=== PATIENT | female | born 1945 | race Caucasian/White ===

== ENCOUNTER 2021-01-25 09:47 | Outpatient (REF) | payer SELFPAY ==
[2021-01-25 11:52] LABS: Alanine Aminotransferase 8 U/L (0-31); Anion Gap 13 (12-20); Aspartate Amino Transferase 15 U/L (5-31); Blood Urea Nitrogen 10 mg/dL (9-16); Carbon Dioxide 31 mmol/L (22-29); Chloride 101 mmol/L (96-108); Cholesterol 173 mg/dL; Estimated Glomerular Filt Rate > 60; Glucose Fasting 140 mg/dL (60-99); HDL Cholesterol 49 mg/dL; LDL Cholesterol Calculated 84 mg/dl; Potassium 4.6 mmol/L (3.3-5.1); Sodium 140 mmol/L (135-145); Triglycerides 201 mg/dL
[2021-01-25 11:59] LABS: Estimated Average Glucose 140 mg/dL; Hemoglobin A1c % 6.5 %
[2021-01-25 12:18] LABS: Vitamin D 25-OH Total 33.7 ng/mL (>30)
== END 2021-01-25 09:48 | disposition home or self-care (01) ==
LOC: HO.HMGCLDS 09:47
PROVIDERS: PCP Internal Medicine; Visit Provider Internal Medicine
DX: E11.9 Type 2 diabetes mellitus without complications (principal); E78.5 Hyperlipidemia, unspecified; I10 Essential (primary) hypertension
CPT/HCPCS: 36415; 80048; 80061; 82306; 83036; 84450; 84460

== ENCOUNTER 2022-02-12 08:14 | Outpatient (REF) | payer SELFPAY ==
[2022-02-12 11:59] LABS: Estimated Average Glucose 143 mg/dL; Hemoglobin A1c % 6.6 %
[2022-02-12 12:15] LABS: Alanine Aminotransferase 8 U/L (0-31); Anion Gap 13 (12-20); Aspartate Amino Transferase 13 U/L (5-31); Blood Urea Nitrogen 12 mg/dL (9-16); Calcium 10.2 mg/dL (8.4-10.2); Carbon Dioxide 29 mmol/L (22-29); Chloride 103 mmol/L (96-108); Cholesterol 158 mg/dL; Estimated Glomerular Filt Rate > 60; Glucose Fasting 119 mg/dL (60-99); HDL Cholesterol 46 mg/dL; LDL Cholesterol Calculated 85 mg/dl; Potassium 4.4 mmol/L (3.3-5.1); Sodium 141 mmol/L (135-145); Triglycerides 139 mg/dL; Vitamin D 25-OH Total 16.9 ng/mL (>30)
[2022-02-12 12:16] LABS: Creatinine Urine 123.88 mg/dL; Microalbum/Creatinine Ratio Ur 115.4 ug/mg cr
== END 2022-02-12 08:15 | disposition home or self-care (01) ==
LOC: HO.HMGCLDS 08:14
PROVIDERS: PCP Internal Medicine; Visit Provider Internal Medicine
DX: M81.0 Age-related osteoporosis without current pathological fracture (principal); E11.9 Type 2 diabetes mellitus without complications; E78.5 Hyperlipidemia, unspecified; I10 Essential (primary) hypertension; Z78.0 Asymptomatic menopausal state
CPT/HCPCS: 36415; 80048; 80061; 82043; 82306; 83036; 84450; 84460

== ENCOUNTER 2022-05-16 09:50 | Outpatient (REF) | payer SELFPAY ==
[2022-05-16 11:11] LABS: MANUAL DIFF FLAG NO
[2022-05-16 11:21] LABS: Basophils Absolute Auto 0.1 X10*3/uL (0.0-0.2); Basophils Percent Auto 0.7 % (0-2); Eosinophils Absolute Auto 0.2 X10*3/uL (0.0-0.4); Eosinophils Percent Auto 2.2 % (0-4); Hematocrit 34.2 % (37.0-47.0); Hemoglobin 10.3 g/dl (12.0-16.0); Imm Gran Abs Auto 0.02 X10*3/uL (0.00-0.03); Imm Gran Pct Auto 0.3 % (0.0-0.4); Lymphocytes Absolute Auto 2.4 X10*3/uL (1.2-4.9); Lymphocytes Percent Auto 33.1 % (20-40); Mean Corpuscular HGB Conc 30.1 g/dl (31.0-35.0); Mean Corpuscular Hemoglobin 24.9 pg (27.0-33.0); Mean Corpuscular Volume 82.8 fL (80.0-98.0); Mean Platelet Volume 11.3 fL (9.4-12.3); Monocytes Absolute Auto 0.6 X10*3/uL (0.1-1.2); Monocytes Percent Auto 7.9 % (2-11); Neutrophils Absolute Auto 4.1 x10*3/uL (2.0-8.3); Neutrophils Percent Auto 55.8 % (45-73); Platelet Count 274 X10*3/uL (160-400); Red Blood Count 4.13 X10*6/uL (4.20-5.50); Red Cell Distribution Width 14.4 % (11.0-16.0); White Blood Count 7.3 X10*3/uL (4.8-10.8)
[2022-05-16 11:29] LABS: Estimated Average Glucose 137 mg/dL; Hemoglobin A1c % 6.4 %
[2022-05-16 11:39] LABS: Alanine Aminotransferase 7 U/L (0-31); Anion Gap 15 (12-20); Aspartate Amino Transferase 12 U/L (5-31); Blood Urea Nitrogen 14 mg/dL (9-16); Calcium 9.9 mg/dL (8.4-10.2); Carbon Dioxide 31 mmol/L (22-29); Chloride 98 mmol/L (96-108); Cholesterol 153 mg/dL; Estimated Glomerular Filt Rate > 60; Glucose Fasting 103 mg/dL (60-99); HDL Cholesterol 41 mg/dL; LDL Cholesterol Calculated 79 mg/dl; Potassium 4.1 mmol/L (3.3-5.1); Sodium 140 mmol/L (135-145); Triglycerides 165 mg/dL
[2022-05-16 11:56] LABS: Creatinine Urine 55.62 mg/dL
[2022-05-16 12:01] LABS: Free T4 (Free Thyroxine) 1.14 ng/dL (0.71-1.85); Thyroid Stimulating Hormone 0.04 uIU/mL (0.32-4.0)
== END 2022-05-16 09:51 | disposition home or self-care (01) ==
LOC: HO.HMGCLDS 09:50
PROVIDERS: PCP Internal Medicine; Visit Provider Internal Medicine
DX: E11.9 Type 2 diabetes mellitus without complications (principal); E03.9 Hypothyroidism, unspecified; E04.2 Nontoxic multinodular goiter; E78.5 Hyperlipidemia, unspecified; M81.0 Age-related osteoporosis without current pathological fracture
CPT/HCPCS: 36415; 80048; 80061; 82043; 83036; 84439; 84443; 84450; 84460; 85025

== ENCOUNTER 2022-06-30 13:08 | Outpatient (REF) | payer SELFPAY ==
[2022-06-30 14:22] LABS: Iron 46 mcg/dL (30-160); Percent Iron Saturation 9 % (15-50); Total Iron Binding Capacity 511 mcg/dL (228-428); Unsaturated Iron Binding 465 ug/dL
[2022-06-30 14:40] LABS: Vitamin D 25-OH Total 68.5 ng/mL (>30)
== END 2022-06-30 13:09 | disposition home or self-care (01) ==
LOC: HO.HMGCLDS 13:08
PROVIDERS: PCP Internal Medicine; Visit Provider Internal Medicine
DX: D64.9 Anemia, unspecified (principal); M81.0 Age-related osteoporosis without current pathological fracture; E78.5 Hyperlipidemia, unspecified; E11.9 Type 2 diabetes mellitus without complications
CPT/HCPCS: 36415; 82306; 83540

== ENCOUNTER 2023-05-13 12:19 | Outpatient (REF) | payer MEDICARE, SELFPAY ==
[2023-05-13 12:37] LABS: MANUAL DIFF FLAG NO
[2023-05-13 12:56] LABS: Basophils Absolute Auto 0.1 X10*3/uL (0.0-0.2); Basophils Percent Auto 0.9 % (0-2); Eosinophils Absolute Auto 0.1 X10*3/uL (0.0-0.4); Eosinophils Percent Auto 1.7 % (0-4); Hemoglobin 10.3 g/dl (12.0-16.0); Imm Gran Abs Auto 0.01 X10*3/uL (0.00-0.03); Imm Gran Pct Auto 0.1 % (0.0-0.4); Lymphocytes Absolute Auto 2.3 X10*3/uL (1.2-4.9); Lymphocytes Percent Auto 32.7 % (20-40); Mean Corpuscular HGB Conc 29.4 g/dl (31.0-35.0); Mean Corpuscular Volume 81.4 fL (80.0-98.0); Mean Platelet Volume 10.6 fL (9.4-12.3); Monocytes Absolute Auto 0.7 X10*3/uL (0.1-1.2); Monocytes Percent Auto 9.6 % (2-11); Neutrophils Absolute Auto 3.8 x10*3/uL (2.0-8.3); Platelet Count 254 X10*3/uL (160-400); Red Cell Distribution Width 14.6 % (11.0-16.0)
[2023-05-13 13:34] LABS: Estimated Average Glucose 137 mg/dL; Hemoglobin A1c % 6.4 %
[2023-05-13 14:14] LABS: Creatinine Urine 26.58 mg/dL; Microalbum/Creatinine Ratio Ur 86.5 ug/mg cr
[2023-05-13 14:56] LABS: Alanine Aminotransferase 8 U/L (0-31); Anion Gap 13 (12-20); Aspartate Amino Transferase 14 U/L (5-31); Blood Urea Nitrogen 8 mg/dL (9-16); Calcium 10.4 mg/dL (8.4-10.2); Carbon Dioxide 31 mmol/L (22-29); Chloride 101 mmol/L (96-108); Cholesterol 154 mg/dL; Estimated Glomerular Filt Rate > 60; Glucose Fasting 106 mg/dL (60-99); HDL Cholesterol 45 mg/dL; Iron 43 mcg/dL (30-160); LDL Cholesterol Calculated 83 mg/dl; Percent Iron Saturation 11 % (15-50); Potassium 4.4 mmol/L (3.3-5.1); Sodium 141 mmol/L (135-145); Total Iron Binding Capacity 409 mcg/dL (228-428); Triglycerides 130 mg/dL; Unsaturated Iron Binding 366 ug/dL
[2023-05-13 15:15] LABS: Free T4 (Free Thyroxine) 1.05 ng/dL (0.71-1.85); Thyroid Stimulating Hormone 0.02 uIU/mL (0.32-4.0); Vitamin D 25-OH Total 38.4 ng/mL (>30)
== END 2023-05-13 12:20 | disposition home or self-care (01) ==
LOC: HO.LAB 12:19
PROVIDERS: PCP Internal Medicine; Visit Provider Internal Medicine
DX: D64.9 Anemia, unspecified (principal); E11.9 Type 2 diabetes mellitus without complications; E78.5 Hyperlipidemia, unspecified; M81.0 Age-related osteoporosis without current pathological fracture; E03.9 Hypothyroidism, unspecified; E04.2 Nontoxic multinodular goiter
CPT/HCPCS: 36415; 80048; 80061; 82043; 82306; 83036; 83540; 84439; 84443; 84450; 84460; 85025

== ENCOUNTER 2023-07-08 08:56 | Outpatient (AMB) | payer MEDICARE, SELFPAY ==
--- NOTE | 2023-07-08 08:59 | A.OFFVIS_ITS ---
Intake Vital Signs 07/08/23 09:02 Height 5 ft 1 in Weight 125 lb BMI 23.6 BP 134/74 Blood Pressure Location Rt brachial Position Sitting Pulse 69 Pulse Source Pulse Oximeter Pulse Oximetry (%) 96 Oxygen Delivery Method Room Air Intake Visit Reasons: SWV G0439 Intake Note: Pt is here today for her SWV Allergies tomato Adverse Reaction (Verified 01/18/24 02:22) Nausea egg plant Adverse Reaction (Uncoded 01/18/24 02:22) Nausea Medication List - Last Reconciled 01/18/24 by April Dorado MD calcium carbonate (Tums) 200 mg PO BID magnesium 250 mg PO DAILY metformin 500 mg PO BID propranolol ER 80 mg PO DAILY simvastatin 20 mg PO BEDTIME HPI SWV G0439 HPI Details SWV ? 78-year-old lady with history of multinodular goiter, with subsequent subclinical hypothyroidism, osteoporosis, dyslipidemia type 2 diabetes mellitus, here today for her subsequent annual wellness visit. Last mammogram was done 05/22/2018, not want to do further testing. No longer gets cervical cancer screenings or pelvic exam. Has never had a colonoscopy, Cologuard ordered today. Overdue for her bone density scan, ordered on this visit. She had fasting blood sugar done 05/13/2023 which showed normal findings, with a hemoglobin A1c at 6.4%. Overdue for her lipid screening, ordered today . She has had for COVID vaccines do es not want to get a booster, did not get her flu shot last year, but is up-to-date with her Prevnar 20 vaccine . .? Medical / Social History Reviewed? Past Medical History ?Yes . ? [place] of Care / Care Team list updated ?Yes . ? Surgical/Hospitalization History ?Yes . ? Current Medications (including OTC and supplements) ?Yes . ? Family History ?Yes . ? Tobacco Control form ?Yes . ? AUDIT-C (Alcohol use) form ?Yes . ? Illicit drug use in Social History ?Yes . ? Current diagnosis of depression? ?No ? Appropriate PHQ2/PHQ9 completed ?Yes . ? Data entered by ?[employer] and reviewed by provider ? Fall Risk ? Fall History? Have you had any falls with injury in the past year? ?No . ? Have you had two or more falls in the past year? ?No . ? Fall Risk Assessment: ?No falls in the past year . ? HRA filled out by the patient, reviewed by Provider and scanned. ? SWV ? Balance? Romberg ?Yes . ? Tandem walk ?Yes . ? Walk and Turn ?Yes . ? Rise from sit to stand ?Yes . ?Vision? Corrective lens ?Yes ? Vision screen ? Up-to-date, had her vision exam 12/12/[address] Rios ?Hearing? Whisper test ?pass . ?Written Plan?Completed. See Patient Documents.? HPI Comments History of Present Illness Details ? Fall Risk ? [facility] Medical History (Updated 10/04/23 @ 10:06 by April Dorado MD) Colon cancer screening Anemia Subclinical hypothyroidism Multinodular goiter (nontoxic) Breast cancer screening by mammogram Osteoporosis Dyslipidemia Type 2 diabetes mellitus without complication, without long-term current use of insulin Surgical History No pertinent past surgical history Family History Other No significant family history Social History Housing: Condominium Alcohol intake: never Patient Tobacco Use Status: Never used Tobacco e-Cigarette/Vaping Use: Never Used Current occupational status: retired Cognitive needs: No Hearing needs: No Vision needs: No Questionnaire Medicare Wellness Checkup [age] What gender do you identify with?: female During the past 4 weeks, how much have you been bothered by emotional problems such as feeling anxious, depressed, irritable, sad or downhearted, and blue?: slightly During the past 4 weeks, has your physical & emotional health limited your social activities with family, friends, neighbors, or groups?: slightly During the past 4 weeks, how much bodily pain have you generally had?: very mild pain During the past 4 weeks, was someone available to help you if you needed & wanted help?: yes, as much as I wanted During the past 4 weeks, what was the hardest physical activity you could do for at least 2 minutes?: moderate Can you get to places out of walking distance without help? (For eg., can you travel alone on buses, taxis or drive your car?): Yes Can you go shopping for groceries or clothes without someone's help?: Yes Can you prepare your own meals?: Yes Can you do your housework without help?: Yes Because of any health problems, do you need the help of another person with your personal care needs such as eating, bathing, dressing or getting around the house?: Yes Can you handle your own money without help?: Yes During the past 4 weeks, how would you rate your health in general?: very good During the past 4 weeks how have things been going for you?: pretty well Are you having difficulties driving your car?: not applicable, I don't use a car Do you always fasten your seat belt when you are in a car?: yes, usually During past 4 weeks, have you been bothered by the following: never: Falling or dizzy when standing up, Sexual problems?, Trouble eating well? and Problems using the telephone?, seldom: Teeth or denture problems? and sometimes: Tiredness or fatigue? Have you fallen 2 or more times in the past year?: No Are you afraid of falling?: Yes Are you a smoker?: no During the past 4 weeks, how many drinks of wine, beer, or other alcoholic beverages did you have?: no alcohol at all Do you exercise for about 20 minutes 3 or more times a week?: yes, all the time Have you been given information to help with the following?: no: Hazards in your house that might hurt you? and no: Keeping track of your medications? How often do you have trouble taking medicines the way you have been told to take them?: I always take medicine as prescribed How confident are you that you can control & manage most of your health problems?: somewhat confident What is your race?: Other Mini Mental State Exam (MMSE) Orientation What is the (year) (season) (date) (day) (month)?: year (2022), season (Fall), date (07/08/2023), day (Thursday) and month (July) Where are we (state) (county) (town or city) (hospital) (floor)?: state ([place]), [facility] ([place]), town or city ([place]) and hospital/clinic ([facility]) Score Score: 9 Activity of Daily Living Bathing - sponge bath, tub bath or shower: receives no assistance (gets in/out by self, if usual bathing means Dressing - getting clothes from closets & drawers, including inner/outer garments & fasteners.: gets clothes & gets completely dressed without help Toileting - going to the 'toilet room' for urine/bowel elimination & cleaning self/arranging clothes: goes to toilet room, cleans self, arranges clothes without help Transfer: moves in & out of bed and chair without help (may use support object) Continence: controls urination/bowel movements completely by self Feeding: feeds self without help Total Score: 0 Information obtained from: patient Using telephone: independent Traveling: independent Shopping: independent Preparing meals: independent Housework: independent Taking medicine: independent Managing money: independent PHQ-9 Over the last 2 weeks, how often have you been bothered by any of the following problems? 1. Little interest or pleasure in doing things: not at all 2. Feeling down, depressed, or hopeless: not at all 3. Trouble falling or staying asleep, or sleeping too much: not at all 4. Feeling tired or having little energy: several days 5. Poor appetite or overeating: not at all 6. Feeling bad about yourself - or that you are a failure or have let yourself or your family down: not at all 7. Trouble concentrating on things, such as reading the newspaper or watching television: not at all 8. Moving or speaking so slowly that other people could have noticed. Or the opposite - being so fidgety or restless that you have been moving around a lot more than usual: not at all 9. Thoughts that you would be better off or of hurting yourself in some way: not at all Total score: 1 Depression Screening Interpretation: Negative Depression Screening Done: Yes 45489 - PHQ-9 Billing: Yes Source: Developed by Drs. Ole Pugh, Malena Sanchez, Enrico June and colleagues, with an educational laurita from [employer]. Physical Exam Vital Signs: Last Vital Signs Pulse 69 07/08/23 09:02 BP 134/74 07/08/23 09:02 Pulse Ox 96 07/08/23 09:02 Oxygen Delivery Method Room Air 07/08/23 09:02 BMI result Body Mass Index 23.6 Assessment & Plan Assessment & Plan (1) Encounter for annual wellness visit (AWV) in Medicare patient: Code(s): Z00.00 - Encounter for general adult medical examination without abnormal findings Plan: Medical wellness checklist discussed with patient, reviewed and updated. Copy given (2) Type 2 diabetes mellitus without complication, without long-term current use of insulin: Code(s): E11.9 - Type 2 diabetes mellitus without complications Plan: Controlled, continued on metformin (3) Dyslipidemia: Code(s): E78.5 - Hyperlipidemia, unspecified Plan: On simvastatin (4) Osteoporosis: Comment: was on Fosamax, previously followed by Dr. Brown Code(s): M81.0 - Age-related osteoporosis without current pathological fracture Qualifiers: Osteoporosis type: age-related Presence of current pathological fracture: without current pathological fracture Qualified Code(s): M81.0 - Age-related osteoporosis without current pathological fracture Plan: Bone density scan ordered (5) Colon cancer screening: Code(s): Z12.11 - Encounter for screening for malignant neoplasm of colon Plan: Cologuard ordered (6) Subclinical hypothyroidism: Comment: previously followed by Dr. Brown Code(s): E03.9 - Hypothyroidism, unspecified Plan: Currently asymptomatic (7) Advanced directives, counseling/discussion: Code(s): Z71.89 - Other specified counseling Plan: Initiated the conversation about Advanced Directives. Advanced Directives help patients prepare for current and future decisions about their medical treatment and place of care. Discussed with patient that it is a process where a patients current condition and prognosis are reviewed, their wishes for information regarding their illness are elicited, and likely medical dilemmas are presented and options discussed. Healthcare proxy and MOLST form completed today. These forms can be amended as needed, reviewed yearly and make changes as needed Orders: Orders MM screening mammo BI 10/12/23 M81.0 - Age-related osteoporosis without current pathological fracture, Z12.31 - Encounter for screening mammogram for malignant neoplasm of breast XR DEXA axial skeleton 10/12/23 M81.0 - Age-related osteoporosis without current pathological fracture, Z12.31 - Encounter for screening mammogram for malignant neoplasm of breast Referrals Cologuard Test Z12.11 - Encounter for screening for malignant neoplasm of colon, Z12.12 - Encounter for screening for malignant neoplasm of rectum Quality Reporting (2019) Depression/Bipolar (159/160/161/177) PHQ-9: Total score: 1 Coding Level of Care Code Medicare Subsequent (G0439) Diagnoses Encounter for annual wellness visit (AWV) in Medicare patient Z00.00 Type 2 diabetes mellitus without complication, without long-term current use of insulin E11.9 Dyslipidemia E78.5 Age-related osteoporosis without current pathological fracture M81.0 Osteoporosis type: age-related Presence of current pathological fracture: without current pathological fracture Colon cancer screening Z12.11 Subclinical hypothyroidism E03.9 Advanced directives, counseling/discussion Z71.89 CPT Codes Advance Care Planning - Time spent: 16-45 minutes ([id number]) Advance Care Planning Advance Care Planning discussion: Completed/Scanned Date of discussion: 07/08/23 Who was present: Patient Forms completed: Health Care Proxy and MOLST Time spent: 16-45 minutes Actual minutes spent: 16
[2023-07-08 09:02] VITALS: BP 134/74; PULSE 69; O2SAT 96; BMI 23.6
== END 2023-07-08 10:05 | disposition home or self-care (01) ==
PROVIDERS: PCP Internal Medicine; Visit Provider Internal Medicine
DX: Z00.00 Encounter for general adult medical examination without abnormal findings (principal); E11.9 Type 2 diabetes mellitus without complications; E78.5 Hyperlipidemia, unspecified; M81.0 Age-related osteoporosis without current pathological fracture; Z12.11 Encounter for screening for malignant neoplasm of colon; E03.9 Hypothyroidism, unspecified; Z71.89 Other specified counseling
CPT/HCPCS: 99497; G0402; G0439

== ENCOUNTER 2024-08-24 08:05 | Outpatient (AMB) | payer MEDICARE, MEDICAID, SELFPAY ==
--- NOTE | 2024-08-24 08:12 | A.OFFPC_ITS ---
Vital Signs 08/24/24 08:14 Height 4 ft 11 in Weight 111 lb BMI 22.4 BP 140/80 H Blood Pressure Location Rt brachial Position Sitting Pulse 70 Pulse Source Pulse Oximeter Pulse Oximetry (%) 96 Oxygen Delivery Method Room Air Intake Visit Reasons: Follow Up BP Intake Note: Pt is here today for her f/u b/p Allergies tomato Adverse Reaction (Verified 08/24/24 08:29) Nausea egg plant Adverse Reaction (Uncoded 08/24/24 08:29) Nausea Medication List - Last Reconciled 08/24/24 by April Dorado MD calcium carbonate (Tums) 200 mg PO BID cholecalciferol (vitamin D3) 50 mcg PO DAILY metformin 500 mg PO BID propranolol ER 80 mg PO DAILY simvastatin 20 mg PO BEDTIME zinc-magnesium aspart-vit B6 10-150-3.83 mg caps PO Tobacco use date assessed: 08/24/24 Fall risk assessment: No Falls in past year Last assessed Fall Risk: 08/24/24 Dental Screening Dental Screen Date: 08/24/24 Did you have a dental visit in the last 12 months?: Yes Did you have a dental problem in the last 6 months where you did not have access to dental care?: No Was dental information given to patient?: Patient has dentist HPI Follow Up BP HPI Details 78-year-old female presenting for follow-up care related to chronic conditions, including hypertension, hyperlipidemia, type 2 diabetes mellitus, osteoporosis, and anemia. She reports a long history of thyroid nodules first evaluated decades ago by Dr. Upton. Currently, she is on metformin and simvastatin for diabetes and hyperlipidemia, respectively. The patient did not take propranolol today, which may account for elevated blood pressure levels noted during this visit. She has a history of osteoporosis identified in a 2018 bone density scan, but no pharmacological treatment was initiated at that time. The patient expressed a need for refills of metformin and simvastatin, which are near completion. Last year, anemia was diagnosed. She received a pneumonia vaccine last year but declined further vaccinations, including flu, COVID-19 boosters, shingles, and others, stating satisfaction with current health. [facility] Medical History Colon cancer screening Anemia Subclinical hypothyroidism Multinodular goiter (nontoxic) Breast cancer screening by mammogram Osteoporosis Dyslipidemia Type 2 diabetes mellitus without complication, without long-term current use of insulin Surgical History No pertinent past surgical history Family History Other No significant family history Social History Housing: Condominium Alcohol intake: never Patient Tobacco Use Status: Never used Tobacco e-Cigarette/Vaping Use: Never Used Current occupational status: retired Cognitive needs: No Hearing needs: No Vision needs: No Questionnaire PHQ-9 Over the last 2 weeks, how often have you been bothered by any of the following problems? 1. Little interest or pleasure in doing things: not at all 2. Feeling down, depressed, or hopeless: not at all 3. Trouble falling or staying asleep, or sleeping too much: not at all 4. Feeling tired or having little energy: not at all 5. Poor appetite or overeating: not at all 6. Feeling bad about yourself - or that you are a failure or have let yourself or your family down: not at all 7. Trouble concentrating on things, such as reading the newspaper or watching television: not at all 8. Moving or speaking so slowly that other people could have noticed. Or the opposite - being so fidgety or restless that you have been moving around a lot more than usual: not at all 9. Thoughts that you would be better off or of hurting yourself in some way: not at all Total score: 0 Depression Screening Interpretation: Negative Depression Screening Done: Yes 07057 - PHQ-9 Billing: Yes Source: Developed by Drs. Ole Pugh, Malena Sanchez, Enrico June and colleagues, with an educational laurita from [employer]. Thrive Questionnaire Date Thrive assessed: 08/24/24 I am a: Patient What is your living situation today?: I have a steady place to live Within the past 12 months, did the food you bought not last and you didn't have the money to get more?: Never true Within the past 12 months, did you worry whether your food would run out before you got money to buy more?: Never true Do you have trouble paying for medicines?: No Do you have trouble getting transportation to medical appointments?: No Do you have trouble paying your heating and electricity bill?: No Do you have trouble taking care of your child, family member or friend?: No Do you have trouble with day-to-day activities such as bathing, preparing meals, shopping, managing finances, etc.?: No Are you currently unemployed and looking for a job?: No Are you interested in more education?: No THRIVE Score: 0 AUDIT C Alcohol Use Questionnaire (AUDIT-C) 1. How often do you have a drink containing alcohol?: Never Total Score: 0 LASHONDA-7 AMB Questionnaire LASHONDA-7 Date LASHONDA - 7 assessed: 08/24/24 Feeling nervous, anxious, or on edge: 0 = Not at all Not being able to stop or control worryin = Not at all Worrying too much about different things: 0 = Not at all Trouble relaxin = Not at all Being so restless that it is hard to sit still: 0 = Not at all Becoming easily annoyed or irritable: 0 = Not at all Feeling afraid as if something awful might happen: 0 = Not at all Total LASHONDA-7 score (0-4 normal; 5-9 mild; 10-14 moderate; 15-21 severe): 0 Source: Developed by Drs. Ole Pugh, Malena Sanchez, Enrico June and colleagues, with an educational laurita from [employer]. LASHONDA-7 Assessment Billing LASHONDA-7 Assessment Tool: LASHONDA-7 Assessment 72039 Review of Systems Const Denies body aches, Denies fatigue, Denies fever(s), Denies headache(s), Denies weakness and Reports other (No significant change in weight) Eyes Details: sees Dr fiore Denies change in vision, Denies eye discharge and Denies itchy eyes ENT Denies change in voice, Denies dysphagia, Denies dizziness, Denies headache(s), Denies hoarseness, Denies nasal congestion, Denies nasal discharge and Denies sore throat Card Denies chest pain, Denies lightheadedness, Denies palpitations and Denies dyspnea Resp Denies chest congestion, Denies cough, Denies dyspnea and Denies wheezing GI Denies abdominal pain, Denies change in bowel habits, Denies dysphagia and Denies heartburn Denies urinary frequency, Denies dysuria and Denies urinary urgency Musc Reports no additional complaints Skin/Breast Denies lesions and Denies rash Neuro Denies dizziness, Denies headache(s) and Denies weakness Psych Reports no additional complaints Endo Denies fatigue, Denies polydipsia, Denies polyuria and Denies palpitations Edmund/Lymph Denies easy bruising Aller/Immun Denies itchy eyes, Denies seasonal rhinorrhea and Denies wheezing Physical exam (Primary Care) Vital Signs: Last Vital Signs Pulse 70 08/24/24 08:14 BP 140/80 H 08/24/24 08:14 Pulse Ox 96 08/24/24 08:14 Oxygen Delivery Method Room Air 08/24/24 08:14 BMI result Body Mass Index 22.4 Tobacco/Smoking Status: Tobacco use Status Tobacco use date assessed 08/24/24 08/24/24 08:19 Patient Tobacco Use Status Never used Tobacco 08/24/24 08:13 e-Cigarette/Vaping Use Never Used 08/24/24 08:13 PHQ-9: PHQ-9 Score PHQ-9: Total score 0 08/24/24 09:04 Depression Screening Interpretation: Negative Thrive Assessment: Date of Thrive Assessment Date Thrive assessed 08/24/24 08/24/24 08:20 Const General: no acute distress and alert Orientation/consciousness: patient oriented x3 HENMT Head: Yes normocephalic Ears: hearing grossly normal bilaterally, external ears normal, TM's normal bilaterally and EAC's normal General nose exam: Normal external nose present Face and sinus: Yes face symmetric Mouth: Normal oral and palatal mucosa present, oropharynx normal and moist mucous membranes Eyes General: appearance normal, both eyes and all related structures Periorbital: periorbital findings normal Pupils: Equal, round and reactive pupils present EOM: EOMs intact bilaterally Neck Neck: Yes full ROM, Yes no lymphadenopathy and Yes supple Thyroid: diffusely enlarged and nontender Resp Auscultation: clear to auscultation bilaterally Cardio Rate: regular rate Rhythm: regular rhythm Heart sounds: S1 normal heart sound present and S2 normal heart sound present GI Palpation (GI): Soft to palpation, nontender, no guarding and no masses Auscultation: normal bowel sounds General: Yes no CVA tenderness Back/Spine/Pelvis Back: no CVA tenderness Skin General skin exam: no rashes or lesions noted Neuro General: patient oriented x3, gait normal, moves all extremities, no focal motor deficits and CN's II-XI intact bilaterally Cranial nerves: Yes Equal, round and reactive pupils present Extrem General: Yes full ROM, Yes no joint enlargement and Yes normal gait Psych Appearance: grossly normal and well kempt Mental Status: mental status grossly normal Speech and movement: Normal speech and movement present Affect: normal affect Attitude: cooperative Thought process: Normal thought process present Coding Level of Care Code Est Pt Level 4 (84454) Complex EM visit Add On G2211 Diagnoses Type 2 diabetes mellitus without complication, without long-term current use of insulin E11.9 Dyslipidemia E78.5 Age-related osteoporosis without current pathological fracture M81.0 Osteoporosis type: age-related Presence of current pathological fracture: without current pathological fracture Subclinical hypothyroidism E03.9 Anemia D64.9 Multinodular goiter (nontoxic) E04.2 Additional Codes PHQ-9 - 42701 - PHQ-9 Billing: Yes ([id number]) LASHONDA-7 Assessment Billing - LASHONDA-7 Assessment Tool: LASHONDA-7 Assessment 66580 ([id number]) Assessment & Plan Assessment & Plan (1) Type 2 diabetes mellitus without complication, without long-term current use of insulin: Code(s): E11.9 - Type 2 diabetes mellitus without complications Category: Medical (2) Dyslipidemia: Code(s): E78.5 - Hyperlipidemia, unspecified Category: Medical (3) Osteoporosis: Comment: was on Fosamax, previously followed by Dr. Brown Code(s): M81.0 - Age-related osteoporosis without current pathological fracture Category: Medical Qualifiers: Osteoporosis type: age-related Presence of current pathological fracture: without current pathological fracture Qualified Code(s): M81.0 - Age- related osteoporosis without current pathological fracture (4) Subclinical hypothyroidism: Comment: previously followed by Dr. Brown Code(s): E03.9 - Hypothyroidism, unspecified Category: Medical (5) Anemia: Code(s): D64.9 - Anemia, unspecified Category: Medical (6) Multinodular goiter (nontoxic): Code(s): E04.2 - Nontoxic multinodular goiter Category: Medical Plan - Essential Hypertension: Refill propranolol, with advice on compliance to manage blood pressure levels. - Hyperlipidemia: Refill simvastatin and monitor lipid profile with upcoming blood work. - Type 2 Diabetes Mellitus: Refill metformin and monitor HbA1c and glucose levels with upcoming labs. - Osteoporosis: Ordered bone density scan to assess current status and discuss possible treatments based on results. - Anemia: Follow up on complete blood count from today's blood work to reassess anemia status. - Thyroid Nodule: Plan for an ultrasound to evaluate any changes in the thyroid nodule. We also discussed past vaccinations, and she chose not to update certain vaccinations at this time. She expressed concern about the new colon cancer screening but declined further evaluation. I advised on lifestyle modifications and keeping on with follow-ups every three months to ensure continued care and monitoring. Patient was informed and verbally consented to the use of an ambient scribe for clinic note documentation during this visit. Orders: Orders Alanine Aminotransferase 08/24/24 D64.9 - Anemia, unspecified, E03.9 - Hypothyroidism, unspecified, E04.2 - Nontoxic multinodular goiter, E11.9 - Type 2 diabetes mellitus without complications, E78.5 - Hyperlipidemia, unspecified, M81.0 - Age-related osteoporosis without current pathological fracture Basic Metabolic Panel Fasting 08/24/24 D64.9 - Anemia, unspecified, E03.9 - Hypothyroidism, unspecified, E04.2 - Nontoxic multinodular goiter, E11.9 - Type 2 diabetes mellitus without complications, E78.5 - Hyperlipidemia, unspecified, M81.0 - Age-related osteoporosis without current pathological fracture Lipid Panel 08/24/24 D64.9 - Anemia, unspecified, E03.9 - Hypothyroidism, unspecified, E04.2 - Nontoxic multinodular goiter, E11.9 - Type 2 diabetes mellitus without complications, E78.5 - Hyperlipidemia, unspecified, M81.0 - Age-related osteoporosis without current pathological fracture IRON PROFILE 08/24/24 D64.9 - Anemia, unspecified, E03.9 - Hypothyroidism, unspecified, E04.2 - Nontoxic multinodular goiter, E11.9 - Type 2 diabetes mellitus without complications, E78.5 - Hyperlipidemia, unspecified, M81.0 - Age-related osteoporosis without current pathological fracture Free T4 (Free Thyroxine) 08/24/24 D64.9 - Anemia, unspecified, E03.9 - Hypothyroidism, unspecified, E04.2 - Nontoxic multinodular goiter, E11.9 - Type 2 diabetes mellitus without complications, E78.5 - Hyperlipidemia, unspecified, M81.0 - Age-related osteoporosis without current pathological fracture US thyroid 08/24/24 E04.2 - Nontoxic multinodular goiter Aspartate Amino Transferase 08/24/24 D64.9 - Anemia, unspecified, E03.9 - Hypothyroidism, unspecified, E04.2 - Nontoxic multinodular goiter, E11.9 - Type 2 diabetes mellitus without complications, E78.5 - Hyperlipidemia, unspecified, M81.0 - Age-related osteoporosis without current pathological fracture Calcium, Ionized 08/24/24 D64.9 - Anemia, unspecified, E03.9 - Hypothyroidism, unspecified, E04.2 - Nontoxic multinodular goiter, E11.9 - Type 2 diabetes mellitus without complications, E78.5 - Hyperlipidemia, unspecified, M81.0 - Age-related osteoporosis without current pathological fracture Complete Blood Count Auto Diff 08/24/24 D64.9 - Anemia, unspecified, E03.9 - Hypothyroidism, unspecified, E04.2 - Nontoxic multinodular goiter, E11.9 - Type 2 diabetes mellitus without complications, E78.5 - Hyperlipidemia, unspecified, M81.0 - Age-related osteoporosis without current pathological fracture Vitamin D 25-OH Total 08/24/24 D64.9 - Anemia, unspecified, E03.9 - Hypothyroidism, unspecified, E04.2 - Nontoxic multinodular goiter, E11.9 - Type 2 diabetes mellitus without complications, E78.5 - Hyperlipidemia, unspecified, M81.0 - Age-related osteoporosis without current pathological fracture Thyroid Stimulating Hormone 08/24/24 D64.9 - Anemia, unspecified, E03.9 - Hypothyroidism, unspecified, E04.2 - Nontoxic multinodular goiter, E11.9 - Type 2 diabetes mellitus without complications, E78.5 - Hyperlipidemia, unspecified, M81.0 - Age-related osteoporosis without current pathological fracture Microalbumin, Random (w Creat) 08/24/24 D64.9 - Anemia, unspecified, E03.9 - Hypothyroidism, unspecified, E04.2 - Nontoxic multinodular goiter, E11.9 - Type 2 diabetes mellitus without complications, E78.5 - Hyperlipidemia, unspecified, M81.0 - Age-related osteoporosis without current pathological fracture XR DEXA axial skeleton 08/24/24 M81.0 - Age-related osteoporosis without current pathological fracture Medications: Refilled metformin 500 mg PO BID 180 tabs 3RF propranolol ER 80 mg PO DAILY 90 caps 3RF simvastatin 20 mg PO BEDTIME 90 tabs 3RF
[2024-08-24 08:14] VITALS: BP 140/80; PULSE 70; O2SAT 96; BMI 22.4
== END 2024-08-24 08:48 | disposition home or self-care (01) ==
LOC: HO.HMCC 08:05
PROVIDERS: PCP Internal Medicine; Visit Provider Internal Medicine
DX: E11.9 Type 2 diabetes mellitus without complications (principal); E78.5 Hyperlipidemia, unspecified; M81.0 Age-related osteoporosis without current pathological fracture; E03.9 Hypothyroidism, unspecified; D64.9 Anemia, unspecified; E04.2 Nontoxic multinodular goiter

== ENCOUNTER → 2024-08-24 08:05 | Outpatient (BNVA) | payer MEDICARE, MEDICAID, SELFPAY | PROVIDERS: PCP Internal Medicine; Visit Provider Internal Medicine | DX: E11.9 Type 2 diabetes mellitus without complications (principal); E78.5 Hyperlipidemia, unspecified; M81.0 Age-related osteoporosis without current pathological fracture; E03.9 Hypothyroidism, unspecified; D64.9 Anemia, unspecified; E04.2 Nontoxic multinodular goiter | CPT/HCPCS: 96127; 99212 ==

== ENCOUNTER 2024-11-14 08:51 | Outpatient (REF) | payer MEDICARE, OTHER, SELFPAY ==
[2024-11-14 09:58] LABS: MANUAL DIFF FLAG NO
[2024-11-14 10:05] LABS: Basophils Absolute Auto 0.1 X10*3/uL (0.0-0.2); Eosinophils Absolute Auto 0.1 X10*3/uL (0.0-0.4); Eosinophils Percent Auto 2.2 % (0-4); Hematocrit 32.8 % (37.0-47.0); Hemoglobin 9.7 g/dl (12.0-16.0); Imm Gran Abs Auto 0.01 X10*3/uL (0.00-0.03); Imm Gran Pct Auto 0.2 % (0.0-0.4); Lymphocytes Absolute Auto 2.1 X10*3/uL (1.2-4.9); Mean Corpuscular HGB Conc 29.6 g/dl (31.0-35.0); Mean Corpuscular Hemoglobin 23.9 pg (27.0-33.0); Mean Corpuscular Volume 80.8 fL (80.0-98.0); Monocytes Absolute Auto 0.6 X10*3/uL (0.1-1.2); Monocytes Percent Auto 9.9 % (2-11); Neutrophils Absolute Auto 2.9 x10*3/uL (2.0-8.3); Neutrophils Percent Auto 49.7 % (45-73); Platelet Count 255 X10*3/uL (160-400); Red Blood Count 4.06 X10*6/uL (4.20-5.50); Red Cell Distribution Width 15.1 % (11.0-16.0); White Blood Count 5.8 X10*3/uL (4.8-10.8)
[2024-11-14 10:35] LABS: Alanine Aminotransferase 10 U/L (0-31); Anion Gap 10 (12-20); Aspartate Amino Transferase 20 U/L (5-31); Blood Urea Nitrogen 14 mg/dL (9-16); Carbon Dioxide 32 mmol/L (22-29); Chloride 104 mmol/L (96-108); Cholesterol 151 mg/dL (<200); Creatinine Urine 67.62 mg/dL; Estimated Glomerular Filt Rate > 60; Glucose Fasting 109 mg/dL (60-99); HDL Cholesterol 57 mg/dL (>40); Iron 31 mcg/dL (30-160); LDL Cholesterol Calculated 73 mg/dL (<100); Microalbum/Creatinine Ratio Ur 8.8 ug/mg cr (<30); Percent Iron Saturation 8 % (15-50); Potassium 3.9 mmol/L (3.3-5.1); Sodium 142 mmol/L (135-145); Total Iron Binding Capacity 401 mcg/dL (228-428); Triglycerides 109 mg/dL (<150); Unsaturated Iron Binding 370 ug/dL
[2024-11-14 10:51] LABS: Free T4 (Free Thyroxine) 1.09 ng/dL (0.71-1.85); Thyroid Stimulating Hormone 0.02 uIU/mL (0.32-4.0); Vitamin D 25-OH Total 24.7 ng/mL (>30)
[2024-11-16 15:29] LABS: Calcium, Ionized 5.5 mg/dL (4.7-5.5)
== END 2024-11-14 08:52 | disposition home or self-care (01) ==
LOC: HO.HMGCLDS 08:51
PROVIDERS: PCP Internal Medicine; Visit Provider Internal Medicine
DX: D64.9 Anemia, unspecified (principal); E03.9 Hypothyroidism, unspecified; E04.2 Nontoxic multinodular goiter; M81.0 Age-related osteoporosis without current pathological fracture; E78.5 Hyperlipidemia, unspecified; E11.9 Type 2 diabetes mellitus without complications
CPT/HCPCS: 36415; 80048; 80061; 82043; 82306; 82330; 82570; 83540; 84439; 84443; 84450; 84460; 85025

== ENCOUNTER 2024-11-29 08:02 | Outpatient (AMB) | payer MEDICARE, MEDICAID, SELFPAY ==
[2024-11-29 08:07] VITALS: BP 124/64; PULSE 73; RESP 17; TEMP 36.4; O2SAT 96; BMI 22.6
--- NOTE | 2024-11-29 08:07 | A.OFFPC_ITS ---
Vital Signs 11/29/24 08:07 Height 4 ft 11 in Weight 112 lb BMI 22.6 BP 124/64 Blood Pressure Location Rt brachial Position Sitting Respiration 17 Pulse 73 Pulse Source Pulse Oximeter Temp 97.5 F Temp Source Oral Pulse Oximetry (%) 96 Oxygen Delivery Method Room Air Intake Visit Reasons: 3 months follow up Intake Note: Pt is here today for her 3mo. f/u Allergies tomato Adverse Reaction (Verified 11/29/24 08:36) Nausea egg plant Adverse Reaction (Uncoded 11/29/24 08:36) Nausea Medication List - Last Reconciled 11/29/24 by April Dorado MD calcium carbonate (Tums) 200 mg PO BID cholecalciferol (vitamin D3) 50 mcg PO DAILY cholecalciferol (vitamin D3) 1,250 mcg PO QWEEK 3 months docusate sodium 100 mg PO DAILY ferrous sulfate 325 mg PO DAILY metformin 500 mg PO BID propranolol ER 80 mg PO DAILY simvastatin 20 mg PO BEDTIME zinc-magnesium aspart-vit B6 10-150-3.83 mg caps PO Tobacco use date assessed: 11/29/24 Fall risk assessment: No Falls in past year Last assessed Fall Risk: 11/29/24 Dental Screening Dental Screen Date: 11/29/24 Did you have a dental visit in the last 12 months?: Yes Did you have a dental problem in the last 6 months where you did not have access to dental care?: No Was dental information given to patient?: Patient has dentist [facility] Medical History Colon cancer screening Anemia Subclinical hypothyroidism Multinodular goiter (nontoxic) Breast cancer screening by mammogram Osteoporosis Dyslipidemia Type 2 diabetes mellitus without complication, without long-term current use of insulin Surgical History No pertinent past surgical history Family History Other No significant family history Social History Housing: Condominium Alcohol intake: never Patient Tobacco Use Status: Never used Tobacco e-Cigarette/Vaping Use: Never Used Current occupational status: retired Cognitive needs: No Hearing needs: No Vision needs: No Questionnaire Thrive Questionnaire Date Thrive assessed: 11/29/24 I am a: Patient What is your living situation today?: I have a steady place to live Within the past 12 months, did the food you bought not last and you didn't have the money to get more?: Never true Within the past 12 months, did you worry whether your food would run out before you got money to buy more?: Never true Do you have trouble paying for medicines?: No Do you have trouble getting transportation to medical appointments?: No Do you have trouble paying your heating and electricity bill?: No Do you have trouble taking care of your child, family member or friend?: No Do you have trouble with day-to-day activities such as bathing, preparing meals, shopping, managing finances, etc.?: No Are you currently unemployed and looking for a job?: No Are you interested in more education?: No THRIVE Score: 0 LASHONDA-7 AMB Questionnaire LASHONDA-7 Date LASHONDA - 7 assessed: 08/24/24 Source: Developed by Drs. Ole Pugh, Malena Sanchez, Enrico June and colleagues, with an educational laurita from [employer]. Physical exam (Primary Care) Vital Signs: Last Vital Signs Temp 97.5 F 11/29/24 08:07 Pulse 73 11/29/24 08:07 Resp 17 11/29/24 08:07 BP 124/64 11/29/24 08:07 Pulse Ox 96 11/29/24 08:07 Oxygen Delivery Method Room Air 11/29/24 08:07 BMI result Body Mass Index 22.6 Tobacco/Smoking Status: Tobacco use Status Tobacco use date assessed 11/29/24 11/29/24 08:17 Patient Tobacco Use Status Never used Tobacco 11/29/24 08:07 e-Cigarette/Vaping Use Never Used 11/29/24 08:07 Thrive Assessment: Date of Thrive Assessment Date Thrive assessed 11/29/24 11/29/24 08:15 Results AMB Hemoglobin A1c AMB Hemoglobin A1c 6.4 % Last Edit by Dari Fraser CMA on 11/29/24 08:33 Results Reviewed Results Reviewed: Name: KristophershreeBuffy Choi Age/Sex: 78/F : 1945 Unit#: [id number] Attend Dr: April Dorado MD Re11/14/24 Status: DEP REF Location: [facility] Disch: SPEC : [id number] DELISA: 11/14/24 STATUS: COMP REQ : [id number] RECD: 11/14/[address] [facility] [address]: April Dorado MD COMP: 11/14/24 ENTERED: 11/14/24 [facility] DR: ORDERED: CBC Auto Diff Test Result Flag Reference WBC 5.8 4.8-10.8 X10*3/uL RBC 4.06 L 4.20-5.50 X10*6/uL HGB 9.7 L 12.0-16.0 g/dl HCT 32.8 L 37.0-47.0 % MCV 80.8 80.0-98.0 fL MCH 23.9 L 27.0-33.0 pg MCHC 29.6 L 31.0-35.0 g/dl RDW 15.1 11.0-16.0 % PLT 255 160-400 X10*3/uL MPV 11.0 9.4-12.3 fL Neut Pct Auto 49.7 45-73 % ImGran Pct Auto 0.2 0.0-0.4 % Lymp Pct Auto 37.0 20-40 % Morton Pct Auto 9.9 2-11 % Eos Pct Auto 2.2 0-4 % Baso Pct Auto 1.0 0-2 % NRBC Pct Auto 0.0 0.0-0.2 /100WBC ANC Neut Abs # 2.9 2.0-8.3 x10*3/uL ImGran Abs Auto 0.01 0.00-0.03 X10*3/uL Lymph Abs Auto 2.1 1.2-4.9 X10*3/uL Morton Abs Auto 0.6 0.1-1.2 X10*3/uL Eos Abs Auto 0.1 0.0-0.4 X10*3/uL Baso Abs Auto 0.1 0.0-0.2 X10*3/uL NRBC Abs Auto 0.000 0.0-0.012 X10*3/uL Name: Buffy Looney Age/Sex: 78/F : 1945 Unit#: [id number] Attend Dr: April Dorado MD Re11/14/24 Status: DEP REF Location: [facility] Disch: SPEC : [id number] DELISA: 11/14/24 STATUS: COMP REQ : [id number] RECD: 11/14/[address]: April Dorado MD COMP: 11/14/24 ENTERED: 11/14/[address]: ORDERED: Met Prof Fast, IRON PROF, AST, ALT, Lipid Panel, Vitamin D 25-OH, Free T Test Result Flag Reference Sodium 142 135-145 mmol/L Potassium 3.9 3.3-5.1 mmol/L CL 104 96-108 mmol/L CO2 32 H 22-29 mmol/L Gap 10 L 12-20 BUN 14 9-16 mg/dL Creat 0.72 0.5-1.4 mg/dL eGFR > 60 Chronic Kidney Disease: Estimated GFR < 60 mL/min/1.73m2 Severe Kidney Disease: Estimated GFR < 15 mL/min/1.73m2 FBS 109 H 60-99 mg/dL A fasting glucose from 100-125 mg/dl is considered impaired (pre-diabetes). CA 10.0 8.4-10.2 mg/dL Iron 31 30-160 mcg/dL TIBC 401 228-428 mcg/dL Saturation 8 L 15-50 % UIBC 370 ug/dL AST (GOT) 20 5-31 U/L ALT (GPT) 10 0-31 U/L Triglyceride 109 <150 mg/dL Desirable Triglyceride: less than 150 mg/dL Borderline High Triglyceride 150-199 mg/dL High Triglyceride: 200-499 mg/dL Very High Triglyceride: greater than or equal to 5OO mg/dL Cholesterol 151 <200 mg/dL Desirable Cholesterol: less than 200 mg/dL Borderline High Cholesterol: 200-239 mg/dL High Cholesterol: greater than 239 mg/dL LDL Calculated 73 <100 mg/dL Desirable LDL: less than 100 mg/dL Near Optimal/Above Optimal LDL: 110-129 mg/dL Borderline High LDL: 130-159 mg/dL High LDL: 160-189 mg/dL Very High LDL: greater than or equal to 190 mg/dL HDL 57 >40 mg/dL Desirable HDL: greater than 40 mg/dL Note: This HDL assay may give artificially low results in patients with liver disease. Vit D 25-OH Tot 24.7 L >30 ng/mL Health Based Reference Values* < 20 ng/mL Deficient 20-30 ng/mL Insufficient > 30 ng/mL Sufficient *Sofía GRIMES. N Engl J Med. 2007;357:266-280 Care must be taken in interpreting Vitamin D results from different laboratories and methodologies. Published data demonstrated that results from patients undergoing hemodialysis may show a negative bias when tested with various automated 25-OH vitamin D assays when compared to LC-MS/MS. When testing samples from patients whose predominant form of Vitamin D is Vitamin D2, such as patients receiving Vitamin D2 supplementation, results that are subtherapeutic should be confirmed with another method such as LC-MS/MS. Free T4 1.09 0.71-1.85 ng/dL TSH 3rd Gen. 0.02 L 0.32-4.0 uIU/mL TSH 3rd Generation ([facility]) Laboratory Tests 11/14/24 08:58 Urine Creatinine 67.62 Urine Microalbumin 6.0 Microalb/Creat Ratio 8.8 Laboratory Tests 11/29/24 08:26 Hgb A1c (Clinic) 6.4 H Coding Level of Care Code Est Pt Level 4 (81326) Complex EM visit Add On G2211 Diagnoses Vitamin D deficiency E55.9 Iron deficiency anemia, unspecified iron deficiency anemia type D50.9 Iron deficiency anemia type: unspecified iron deficiency Type 2 diabetes mellitus without complication, without long-term current use of insulin E11.9 Dyslipidemia E78.5 Assessment & Plan Assessment & Plan (1) Vitamin D deficiency: Code(s): E55.9 - Vitamin D deficiency, unspecified Category: Medical (2) Iron deficiency anemia: Code(s): D50.9 - Iron deficiency anemia, unspecified Category: Medical Qualifiers: Iron deficiency anemia type: unspecified iron deficiency Qualified Code(s): D50.9 - Iron deficiency anemia, unspecified (3) Type 2 diabetes mellitus without complication, without long-term current use of insulin: Code(s): E11.9 - Type 2 diabetes mellitus without complications Category: Medical (4) Dyslipidemia: Code(s): E78.5 - Hyperlipidemia, unspecified Category: Medical Orders: Orders Vitamin B12 and Folate 02/02/25 D50.9 - Iron deficiency anemia, unspecified, E11.9 - Type 2 diabetes mellitus without complications, E55.9 - Vitamin D deficiency, unspecified, E78.5 - Hyperlipidemia, unspecified AMB Hemoglobin A1c Today E11.9 - Type 2 diabetes mellitus without complications Hemoglobin A1c 02/02/25 D50.9 - Iron deficiency anemia, unspecified, E11.9 - Type 2 diabetes mellitus without complications, E55.9 - Vitamin D deficiency, unspecified, E78.5 - Hyperlipidemia, unspecified Lipid Panel 02/02/25 D50.9 - Iron deficiency anemia, unspecified, E11.9 - Type 2 diabetes mellitus without complications, E55.9 - Vitamin D deficiency, unspecified, E78.5 - Hyperlipidemia, unspecified Vitamin D 25-OH Total 02/02/25 D50.9 - Iron deficiency anemia, unspecified, E11.9 - Type 2 diabetes mellitus without complications, E55.9 - Vitamin D deficiency, unspecified, E78.5 - Hyperlipidemia, unspecified Complete Blood Count Auto Diff 02/02/25 D50.9 - Iron deficiency anemia, unspecified, E11.9 - Type 2 diabetes mellitus without complications, E55.9 - Vitamin D deficiency, unspecified, E78.5 - Hyperlipidemia, unspecified IRON PROFILE 02/02/25 D50.9 - Iron deficiency anemia, unspecified, E11.9 - Type 2 diabetes mellitus without complications, E55.9 - Vitamin D deficiency, unspecified, E78.5 - Hyperlipidemia, unspecified Alanine Aminotransferase 02/02/25 D50.9 - Iron deficiency anemia, unspecified, E11.9 - Type 2 diabetes mellitus without complications, E55.9 - Vitamin D deficiency, unspecified, E78.5 - Hyperlipidemia, unspecified Aspartate Amino Transferase 02/02/25 D50.9 - Iron deficiency anemia, unspeci fied, E11.9 - Type 2 diabetes mellitus without complications, E55.9 - Vitamin D deficiency, unspecified, E78.5 - Hyperlipidemia, unspecified Basic Metabolic Panel Fasting 02/02/25 D50.9 - Iron deficiency anemia, unspecified, E11.9 - Type 2 diabetes mellitus without complications, E55.9 - Vitamin D deficiency, unspecified, E78.5 - Hyperlipidemia, unspecified Medications: New ferrous sulfate 325 mg PO DAILY 90 tabs 1RF D50.9 - Iron deficiency anemia, unspecified docusate sodium Take together with iron pills , prevent constipation 100 mg PO DAILY 90 caps 1RF cholecalciferol (vitamin D3) 1,250 mcg PO QWEEK 3 months 13 caps 0RF E55.9 - Vitamin D deficiency, unspecified
== END 2024-11-29 08:48 | disposition home or self-care (01) ==
PROVIDERS: PCP Internal Medicine; Visit Provider Internal Medicine
DX: E11.9 Type 2 diabetes mellitus without complications (principal)

== ENCOUNTER → 2024-11-29 08:02 | Outpatient (BNVA) | payer MEDICARE, MEDICAID, SELFPAY | PROVIDERS: PCP Internal Medicine; Visit Provider Internal Medicine | DX: E55.9 Vitamin D deficiency, unspecified (principal); D50.9 Iron deficiency anemia, unspecified; E11.9 Type 2 diabetes mellitus without complications; E78.5 Hyperlipidemia, unspecified; M81.0 Age-related osteoporosis without current pathological fracture; E03.9 Hypothyroidism, unspecified; E04.2 Nontoxic multinodular goiter | CPT/HCPCS: 83036; 96127; 99212 ==

== ENCOUNTER 2025-01-16 14:23 | Outpatient (REF) | payer MEDICARE, SELFPAY ==
--- NOTE | ~2025-01-16 | US_ITS ---
EXAMINATION: US THYROID HISTORY: E04.2 - Nontoxic multinodular goiter TECHNIQUE: Real-time grayscale ultrasound imaging was performed and images were reviewed. COMPARISON: There are no prior studies for comparison. FINDINGS: SIZE: The right thyroid lobe measures 7.9 x 4.5 x 5.0 cm. The left thyroid lobe measures 5.7 x 4.0 x 2.0 cm. The isthmus measures 39 mm. FLOW: Flow to the gland is normal. ECHOGENICITY: The echotexture of the gland is heterogeneous. NODULES: Evaluation is limited due to the large size of the gland and heterogeneous echotexture. A single discrete nodule is identified as described below: Nodule #: 1 Location: Right upper pole measuring 4.6 x 4.0 x 3.8 cm. Shape: Taller than wide (3 points) Margins: Smooth (0 points) Echotexture: Isoechoic (1 point) Composition: Solid (2 points) Calcifications: Punctate calcifications (3 points) Total points: 9 TIRADS: TR5: Highly suspicious. US/US thyroid IMPRESSION: Markedly enlarged thyroid. Highly suspicious nodule at the upper pole of the right thyroid lobe. According to ACR TI-RADS guidelines below, ultrasound-guided fine-needle aspiration is recommended. ACR TI-RADS Guidelines TR1 (0 points): Benign, No follow-up or biopsy required TR2 (2 points): Not Suspicious, No biopsy or follow up indicated TR3 (3 points): Mildly Suspicious, FNA if >= 2.5 cm, Follow if >= 1.5 cm TR4 (4-6 points): Moderately Suspicious, FNA if >= 1.5 cm, Follow if >= 1.0 cm TR5 (>=7 points): Highly Suspicious, FNA if >= 1.0 cm, Follow if >= 0.5 cm Electronically signed by: Ole Moseley MD 01/17/2025 07:29 AM EDT
== END 2025-01-16 14:24 | disposition home or self-care (01) ==
LOC: HO.HMGCX 14:23
PROVIDERS: PCP Internal Medicine; Visit Provider Internal Medicine
DX: R04.2 Hemoptysis (principal)
CPT/HCPCS: 76536

== ENCOUNTER → 2025-01-16 14:27 | Outpatient (BNV) | payer MEDICARE, SELFPAY | PROVIDERS: PCP Internal Medicine; Visit Provider Radiology Diagnostic Radiology | DX: E04.9 Nontoxic goiter, unspecified (principal) | CPT/HCPCS: 76536 ==

== ENCOUNTER 2025-02-07 12:47 | Outpatient (REF) | payer MEDICARE, SELFPAY ==
--- NOTE | ~2025-02-07 | MM_ITS ---
EXAMINATION: DXA BONE DENSITY AXIAL HISTORY: M81.0 - Age-related osteoporosis without current pathological fracture TECHNIQUE: [employer] Dual energy absorptiometry (DEXA) of the lumbar spine, total left hip, and femoral neck was performed. COMPARISON: Comparison is made with the prior examination dated 05/20/2018. FINDINGS: The bone mineral density of the lumbar spine is 0.785 with a T-score of -3.2, and a Z-score of -1.4. This is indicative of osteoporosis. This represents a BMD change of -8.6% compared to the prior exam. This is statistically significant. The bone mineral density of the left total hip is 0.702 with a T-score of -2.4, and a Z-score of -0.4. This is indicative of osteopenia. This represents a BMD change of -21.5% compared to the prior exam. This is statistically significant. The bone mineral density of the left femoral neck is 0.690 with a T-score of -2.5, and a Z-score of -0.3. This is indicative of osteoporosis. This represents a BMD change of -18.1% compared to the prior exam. FRACTURE RISK: The FRAX index suggests a ten year probability of major osteoporotic fracture of 19.0%, and of hip fracture 6.7%. MM/XR DEXA axial skeleton IMPRESSION: Based on bone mineral density, and according to World Health Organization (WHO) criteria, the diagnosis is consistent with osteoporosis. All bone density values are in grams per centimeter squared (g/cm2). Statistically, 68% of repeat scans fall within 1 SD (+/- 0.010 g/cm2 for AP spine L1-L4) and 1 SD (+/- 0.012 g/cm2 for femur total) FRAX is a trademark of the [employer] [place] [facility] Met[employer], a World Health Organization (WHO) Collaborating Center. Electronically signed by: Ole Moseley MD 02/07/2025 01:59 PM EDT
== END 2025-02-07 12:48 | disposition home or self-care (01) ==
LOC: HO.MAMMO 12:47
PROVIDERS: PCP Internal Medicine; Visit Provider Internal Medicine
DX: M81.0 Age-related osteoporosis without current pathological fracture (principal)
CPT/HCPCS: 77080

== ENCOUNTER → 2025-02-07 13:00 | Outpatient (BNV) | payer MEDICARE, SELFPAY | PROVIDERS: PCP Internal Medicine; Visit Provider Radiology Diagnostic Radiology | DX: E28.39 Other primary ovarian failure (principal) | CPT/HCPCS: 77080 ==

== ENCOUNTER 2025-06-06 07:58 | Outpatient (AMB) | payer MEDICARE, MEDICAID, SELFPAY ==
[2025-06-06 08:04] VITALS: BP 110/80; PULSE 76; RESP 16; TEMP 36.6; O2SAT 95; BMI 23.0
--- NOTE | 2025-06-06 08:04 | A.OFFPC_ITS ---
Vital Signs 06/06/25 08:04 Height 4 ft 11 in Weight 114 lb BMI 23.0 BP 110/80 Blood Pressure Location Rt brachial Position Sitting Respiration 16 Pulse 76 Pulse Source Pulse Oximeter Temp 97.8 F Temp Source Oral Pulse Oximetry (%) 95 Oxygen Delivery Method Room Air Intake Visit Reasons: 6m follow up/ pt wanted to extend Allergies tomato Adverse Reaction (Verified 06/06/25 08:20) Nausea egg plant Adverse Reaction (Uncoded 06/06/25 08:20) Nausea Medication List - Last Reconciled 06/06/25 by April Dorado MD calcium carbonate (Tums) 200 mg PO BID cholecalciferol (vitamin D3) 50 mcg PO DAILY docusate sodium 100 mg PO DAILY ferrous sulfate 325 mg PO DAILY metformin 500 mg PO BID propranolol ER 80 mg PO DAILY simvastatin 20 mg PO BEDTIME zinc-magnesium aspart-vit B6 10-150-3.83 mg caps PO Tobacco use date assessed: 11/29/24 Dental Screening Dental Screen Date: 06/06/25 Did you have a dental visit in the last 12 months?: Yes Did you have a dental problem in the last 6 months where you did not have access to dental care?: No Was dental information given to patient?: Patient has dentist [facility] Medical History (Updated 06/06/25 @ 08:28 by April Dorado MD) Nodule of right lobe of thyroid gland Iron deficiency anemia Vitamin D deficiency Colon cancer screening Anemia Subclinical hypothyroidism Multinodular goiter (nontoxic) Breast cancer screening by mammogram Osteoporosis Dyslipidemia Type 2 diabetes mellitus without complication, without long-term current use of insulin Surgical History (System 12/06/24 @ 10:52 by Leslie Mclean) No pertinent past surgical history Family History Other No significant family history Social History (System 12/06/24 @ 10:52 by Leslie Mclean) Housing: Condominium Alcohol intake: never Patient Tobacco Use Status: Never used Tobacco e-Cigarette/Vaping Use: Never Used Current occupational status: retired Cognitive needs: No Hearing needs: No Vision needs: No Questionnaire Thrive Questionnaire Date Thrive assessed: 11/29/24 LASHONDA-7 AMB Questionnaire LASHONDA-7 Date LASHONDA - 7 assessed: 12/27/24 Source: Developed by Drs. Ole Pugh, Malena Sanchez, Enrico June and colleagues, with an educational laurita from [employer]. Physical exam (Primary Care) Vital Signs: Last Vital Signs Temp 97.8 F 06/06/25 08:04 Pulse 76 06/06/25 08:04 Resp 16 06/06/25 08:04 BP 110/80 06/06/25 08:04 Pulse Ox 95 06/06/25 08:04 Oxygen Delivery Method Room Air 06/06/25 08:04 BMI result Body Mass Index 23.0 Tobacco/Smoking Status: Tobacco use Status Tobacco use date assessed 11/29/24 06/06/25 08:05 Patient Tobacco Use Status Never used Tobacco 06/06/25 08:05 e-Cigarette/Vaping Use Never Used 06/06/25 08:05 Thrive Assessment: Date of Thrive Assessment Date Thrive assessed 11/29/24 06/06/25 08:05 Results AMB Hemoglobin A1c AMB Hemoglobin A1c 6.2 % Last Edit by Dari Fraser CMA on 06/06/25 08:23 Coding Level of Care Code Est Pt Level 4 (33842) Complex EM visit Add On G2211 Diagnoses Age-related osteoporosis without current pathological fracture M81.0 Osteoporosis type: age-related Presence of current pathological fracture: without current pathological fracture Nodule of right lobe of thyroid gland E04.1 Dyslipidemia E78.5 Type 2 diabetes mellitus without complication, without long-term current use of insulin E11.9 Subclinical hypothyroidism E03.9 Iron deficiency anemia, unspecified iron deficiency anemia type D50.9 Iron deficiency anemia type: unspecified iron deficiency Assessment & Plan Assessment & Plan (1) Osteoporosis: Comment: was on Fosamax, previously followed by Dr. Brown Code(s): M81.0 - Age-related osteoporosis without current pathological fracture Category: Medical Qualifiers: Osteoporosis type: age-related Presence of current pathological fracture: without current pathological fracture Qualified Code(s): M81.0 - Age- related osteoporosis without current pathological fracture (2) Nodule of right lobe of thyroid gland: Code(s): E04.1 - Nontoxic single thyroid nodule Category: Medical (3) Dyslipidemia: Code(s): E78.5 - Hyperlipidemia, unspecified Category: Medical (4) Type 2 diabetes mellitus without complication, without long-term current use of insulin: Code(s): E11.9 - Type 2 diabetes mellitus without complications Category: Medical (5) Subclinical hypothyroidism: Comment: previously followed by Dr. Brown Code(s): E03.9 - Hypothyroidism, unspecified Category: Medical (6) Iron deficiency anemia: Code(s): D50.9 - Iron deficiency anemia, unspecified Category: Medical Qualifiers: Iron deficiency anemia type: unspecified iron deficiency Qualified Code(s): D50.9 - Iron deficiency anemia, unspecified Orders: Orders Thyroid Stimulating Hormone Today E04.1 - Nontoxic single thyroid nodule, R79.89 - Other specified abnormal findings of blood chemistry Free T4 (Free Thyroxine) Today E04.1 - Nontoxic single thyroid nodule, R79.89 - Other specified abnormal findings of blood chemistry AMB Hemoglobin A1c Today E11.9 - Type 2 diabetes mellitus without complications Referrals Endocrinology Referral E04.1 - Nontoxic single thyroid nodule, M81.0 - Age- related osteoporosis without current pathological fracture
== END 2025-06-06 09:30 | disposition home or self-care (01) ==
LOC: HO.HMCC 07:58
PROVIDERS: PCP Internal Medicine; Visit Provider Internal Medicine
DX: E11.9 Type 2 diabetes mellitus without complications (principal)

== ENCOUNTER 2025-06-06 07:58 | Outpatient (REF) | payer MEDICARE, MEDICAID, SELFPAY ==
[2025-06-06 12:00] LABS: Free T4 (Free Thyroxine) 1.18 ng/dL (0.71-1.85); Thyroid Stimulating Hormone 0.05 uIU/mL (0.32-4.0)
== END 2025-06-06 07:59 | disposition home or self-care (01) ==
LOC: HO.HMGCLDS 07:58
PROVIDERS: PCP Internal Medicine; Visit Provider Internal Medicine
DX: E04.1 Nontoxic single thyroid nodule (principal); R79.89 Other specified abnormal findings of blood chemistry; M81.0 Age-related osteoporosis without current pathological fracture; E78.5 Hyperlipidemia, unspecified; E11.9 Type 2 diabetes mellitus without complications; D50.9 Iron deficiency anemia, unspecified; Z79.84 Long term (current) use of oral hypoglycemic drugs; Z79.899 Other long term (current) drug therapy
CPT/HCPCS: 36415; 83036; 84439; 84443; 99212

== ENCOUNTER 2025-07-19 12:03 | Outpatient (AMB) | payer MEDICARE, MEDICAID, SELFPAY ==
[2025-07-19 12:41] VITALS: BP 112/62; PULSE 81; O2SAT 96; BMI 22.4
--- NOTE | 2025-07-19 12:41 | MHC.OFFVIS ---
Vital Signs 07/19/25 12:41 Height 4 ft 11 in Weight 111 lb 1.808 oz BMI 22.4 BP 112/62 Blood Pressure Location Rt brachial Position Sitting Pulse 81 Pulse Source Pulse Oximeter Pulse Oximetry (%) 96 Oxygen Delivery Method Room Air Intake Visit Reasons: non toxic single thyroid nodule, Intake Note: Patient is here for non toxic single thyroid nodule. Backend Tester Required: No Information Interpreted: non-clinical & clinical Accompanied by: Daughter Allergies tomato Adverse Reaction (Verified 07/19/25 12:46) Nausea egg plant Adverse Reaction (Uncoded 07/19/25 12:46) Nausea Medication List - Last Reconciled 07/19/25 by Martha Hill MD calcium carbonate (Tums) 200 mg PO BID cholecalciferol (vitamin D3) 50 mcg PO DAILY docusate sodium 100 mg PO DAILY ferrous sulfate 325 mg PO DAILY metformin 500 mg PO BID propranolol ER 80 mg PO DAILY simvastatin 20 mg PO BEDTIME zinc-magnesium aspart-vit B6 10-150-3.83 mg caps PO HPI Comments Details: 79-year-old female coming in today for initial evaluation of thyroid nodules, subclinical hyperthyroidism and osteoporosis. Patient is here with daughter Thyroid nodule Subclinical hyperthyroidism Ultrasound thyroid 01/16/2025 I reviewed the images myself which showed a heterogenous gland with a enlarged right thyroid lobe with normal vascularity with a right superior 4.6 cm solid isoechoic taller than wide nodule with punctate echogenic foci, TR 5 category. Meets criteria for FNA. Per patient she has known about this since . Was monitored with ultrasounds. Thinks she has had an uptake and scan before as well. Doesnt think she has ever had biopsy Chart review also shows patient has had low TSH levels since 2021 at least with TSH ranging anywhere from 0.02-0.05 with most recent labs from June 2025 with a TSH of 0.05. Free T4 has always been normal, most recently from June 2025 at 1.18. Patient currently denies heat or cold intolerance, diarrhea or constipation, hair loss, palpitation, anxiety, mood changes, low energy, changes in appearance of eyes or vision changes, tremors, increased diaphoresis or dry skin. ? Gradual weight loss for many years thinks decreased apetite. Patient denies any difficulty swallowing, pain on swallowing or voice changes or difficulty breathing. Patient denies any history of childhood neck radiation. Denies having ever used lithium, amiodarone or biotin supplements. Patient denies any family history of thyroid cancer . Daughter has thyroid nodules. Osteoporosis Bone density reviewed from 02/07/25 which showed osteoporosis of the lumbar spine with a T-score of-3.2 with a decrease of 8.6% compared to previous exam in 2018, osteopenia of the left total hip with T-score of-2.4 with a decrease of 21.5% compared to previous exam in 2018, osteoporosis of the left femoral neck with a T-score of-2.5 with a decrease of 18.1% compared to 2018. FRAX score major osteoporotic fracture 19%, hip fracture 6.7%. Osteoporosis new pt evaluation Post menopausal osteoporosis: Diagnosed in 2018 Fracture History:none Height loss: 5' 3 down to 4 11 Back pain: intermittent Pharmacotherapeutic hx: fosamax 8-9 months [id number] per daughter but not sure of time Drug holiday n/a Family history: no history of osteoporosis Estrogen use: Menstrual hx: menopause 51, menarche on time , no HRT 5 live births, 1 miscarriage Secondary risk factors: Steroid use: None Hyperthyroidism: yes subclinical Seizure medication use: None Chemo or Radiation use: Neg Heparin Use: Neg History of eating disorder: Negative residential immobilization: Negative History of kidney stones or disease: negative PI Use: Negative Chronic inflammatory lung disease: Negative Chronic inflammatory bowel disease: Negative Daily calcium intake: no milk, cheese barely, yogurt: none , calcium supplements none Vitamin D intake: 2000 units daily ?? Exercise:30 mins 3-4 days a week Smoking history:none Dental: Has regular dental cleaning, no issues, partial dentures Physical exam General: sitting comfortably in no acute distress HEENT: normocephalic/atraumatic, Neck: supple, palpable large right goiter Cardiac: normal heart sounds Pulm: normal breath sounds B/L, no added breath sounds Abd: not distended, no tenderness Extremities: no edema, no signs of myxedema Laboratory Tests 01/25/21 02/12/22 05/16/22 09:53 08:21 09:57 WBC Neut % (Auto) Absolute Neuts (auto) Creatinine Estimated GFR Calcium 10.0 10.2 9.9 Ionized Calcium 25-OH Vitamin D Total TSH 0.04 L Free T4 1.14 05/13/23 11/14/24 06/06/25 12:22 08:58 09:17 WBC 5.8 Neut % (Auto) 49.7 Absolute Neuts (auto) 2.9 Creatinine 0.72 Estimated GFR > 60 Calcium 10.4 H 10.0 Ionized Calcium 5.5 25-OH Vitamin D Total 24.7 L TSH 0.02 L 0.02 L 0.05 L Free T4 1.05 1.09 1.18 EXAMINATION: US THYROID 01/16/25 HISTORY: E04.2 - Nontoxic multinodular goiter TECHNIQUE: Real-time grayscale ultrasound imaging was performed and images were reviewed. COMPARISON: There are no prior studies for comparison. FINDINGS: SIZE: The right thyroid lobe measures 7.9 x 4.5 x 5.0 cm. The left thyroid lobe measures 5.7 x 4.0 x 2.0 cm. The isthmus measures 39 mm. FLOW: Flow to the gland is normal. ECHOGENICITY: The echotexture of the gland is heterogeneous. NODULES: Evaluation is limited due to the large size of the gland and heterogeneous echotexture. A single discrete nodule is identified as described below: Nodule #: 1 Location: Right upper pole measuring 4.6 x 4.0 x 3.8 cm. Shape: Taller than wide (3 points) Margins: Smooth (0 points) Echotexture: Isoechoic (1 point) Composition: Solid (2 points) Calcifications: Punctate calcifications (3 points) Total points: 9 TIRADS: TR5: Highly suspicious. US/US thyroid IMPRESSION: Markedly enlarged thyroid. Highly suspicious nodule at the upper pole of the right thyroid lobe. According to ACR TI-RADS guidelines below, ultrasound-guided fine-needle aspiration is recommended. EXAMINATION: DXA BONE DENSITY AXIAL 02/07/25 HISTORY: M81.0 - Age-related osteoporosis without current pathological fracture TECHNIQUE: [employer] Dual energy absorptiometry (DEXA) of the lumbar spine, total left hip, and femoral neck was performed. COMPARISON: Comparison is made with the prior examination dated 05/20/2018. FINDINGS: The bone mineral density of the lumbar spine is 0.785 with a T-score of -3.2, and a Z-score of -1.4. This is indicative of osteoporosis. This represents a BMD change of -8.6% compared to the prior exam. This is statistically significant. The bone mineral density of the left total hip is 0.702 with a T-score of -2.4, and a Z-score of -0.4. This is indicative of osteopenia. This represents a BMD change of -21.5% compared to the prior exam. This is statistically significant. The bone mineral density of the left femoral neck is 0.690 with a T-score of -2.5, and a Z-score of -0.3. This is indicative of osteoporosis. This represents a BMD change of -18.1% compared to the prior exam. FRACTURE RISK: The FRAX index suggests a ten year probability of major osteoporotic fracture of 19.0%, and of hip fracture 6.7%. MM/XR DEXA axial skeleton IMPRESSION: Based on bone mineral density, and according to World Health Organization (WHO) criteria, the diagnosis is consistent with osteoporosis. All bone density values are in grams per centimeter squared (g/cm2). Statistically, 68% of repeat scans fall within 1 SD (+/- 0.010 g/cm2 for AP spine L1-L4) and 1 SD (+/- 0.012 g/cm2 for femur total) FRAX is a trademark of the [employer] [place] [facility] Met[employer] Bone Disease, a World Health Organization (WHO) Collaborating Center. Electronically signed by: Ole Moseley MD 02/07/2025 01:59 PM EDT RP [facility] Medical History (Updated 07/19/25 @ 13:13 by Martha Hill MD) Subclinical hyperthyroidism Bronchiectasis Nodule of right lobe of thyroid gland Iron deficiency anemia Vitamin D deficiency Colon cancer screening Anemia Subclinical hypothyroidism Multinodular goiter (nontoxic) Breast cancer screening by mammogram Osteoporosis Dyslipidemia Type 2 diabetes mellitus without complication, without long-term current use of insulin Surgical History No pertinent past surgical history Family History Other No significant family history Social History Housing: Condominium Alcohol intake: never Patient Tobacco Use Status: Never used Tobacco e-Cigarette/Vaping Use: Never Used Current occupational status: retired Cognitive needs: No Hearing needs: No Vision needs: No Physical Exam Vital Signs: BMI result Body Mass Index 22.4 Assessment & Plan Assessment & Plan (1) Multinodular goiter (nontoxic): Code(s): E04.2 - Nontoxic multinodular goiter Category: Medical Plan: 79-year-old female coming in today for initial evaluation of thyroid nodule and subclinical hyperthyroidism. Ultrasound thyroid 01/16/2025 I reviewed the images myself which showed a heterogenous gland with a enlarged right thyroid lobe with normal vascularity with a right superior 4.6 cm solid isoechoic taller than wide nodule with punctate echogenic foci, TR 5 category. Meets criteria for FNA. Per patient she has known about this since . Was monitored with ultrasounds. Thinks she has had an uptake and scan before as well. Doesnt think she has ever had biopsy Chart review also shows patient has had low TSH levels since 2021 at least with TSH ranging anywhere from 0.02-0.05 with most recent labs from June 2025 with a TSH of 0.05. Free T4 has always been normal, most recently from June 2025 at 1.18. At this time given her age, and TSH less than 0.1, plus history of osteoporosis she would meet criteria for treatment of subclinical hyperthyroidism. Hence we will do further investigations with antibody levels as well as a thyroid uptake and scan. Depending on those results if her nodule on the right side is toxic, she might not need a biopsy. We will decide depending on the results. When I reviewed the images myself, it does not look like a high-risk nodule to me. But it seems like it was a difficult exam in the thyroid was not very well visualized. Plan: -ordered TSH, free T4, total T3, TSH receptor, TSI and TPO antibody levels -ordered thyroid uptake and scan -follow up in 3-4 months to discuss results (2) Subclinical hyperthyroidism: Code(s): E05.90 - Thyrotoxicosis, unspecified without thyrotoxic crisis or storm Category: Medical Plan: See above (3) Osteoporosis: Comment: was on Fosamax, previously followed by Dr. Brown Code(s): M81.0 - Age-related osteoporosis without current pathological fracture Category: Medical Qualifiers: Osteoporosis type: age-related Presence of current pathological fracture: without current pathological fracture Qualified Code(s): M81.0 - Age-related osteoporosis without current pathological fracture Plan: Patient with a history of osteoporosis at least since bone densities in 2018, maybe even diagnosed before that since per daughter she was on Fosamax for 8-9 months around 2003. Not sure why it was stopped, maybe had some intolerance to it. Risk factors for osteoporosis include subclinical hyperthyroidism, petite physique, poor nutritional intake of calcium Patient does not have any history of fractures. Most recent bone density scan from 02/07/25 which showed osteoporosis of the lumbar spine with a T-score of-3.2 with a decrease of 8.6% compared to previous exam in 2018, osteopenia of the left total hip with T-score of-2.4 with a decrease of 21.5% compared to previous exam in 2018, osteoporosis of the left femoral neck with a T-score of-2.5 with a decrease of 18.1% compared to 2018. FRAX score major osteoporotic fracture 19%, hip fracture 6.7%. I discussed conservative measures including adequate calcium intake, adequate vitamin D levels as well as the role of weightbearing exercises in general being good for bone health. In addition to conservative management with calcium and vitamin D; I do believe she would benefit from antiresorptive therapy in terms of reducing future fracture risk. Prior to initiating therapy I would like her to complete work-up to get baseline bone turnover markers as well as rule out secondary causes of osteoporosis. Plan: -ordered bone resorption markers, calcium, vitamin-D, albumin, PTH, magnesium, phosphorus, vitamin-D levels, creatinine, serum protein electrophoresis and immunofixation studies -ordered urine calcium and creatinine -Start if not already taking 1000 to 2000 units of vitamin D -Start incorporating 2-3 servings of calcium rich foods daily such as milk, yogurt, cheese, broccoli, spinach, kale and if you cant take this many calcium rich foods start taking 600 mg of calcium in supplement daily -Bring all medication bottles to next visit -continue weight-bearing exercise Plan I spent 60 minutes in reviewing the record, seeing the patient and documenting in the medical record. Orders: Orders Thyroid Stimulating Immunoglob Today E04.2 - Nontoxic multinodular goiter, E05.90 - Thyrotoxicosis, unspecified without thyrotoxic crisis or storm Triiodothyronine T3 Total Today E04.2 - Nontoxic multinodular goiter, E05.90 - Thyrotoxicosis, unspecified without thyrotoxic crisis or storm Thyrotropin Receptor Antibody Today E04.2 - Nontoxic multinodular goiter, E05.90 - Thyrotoxicosis, unspecified without thyrotoxic crisis or storm Thyroid Peroxidase Antibodies Today E04.2 - Nontoxic multinodular goiter, E05.90 - Thyrotoxicosis, unspecified without thyrotoxic crisis or storm Albumin Level Today E55.9 - Vitamin D deficiency, unspecified, M81.0 - Age-related osteoporosis without current pathological fracture Calcium Today E55.9 - Vitamin D deficiency, unspecified, M81.0 - Age-related osteoporosis without current pathological fracture Alkaline Phosphatase Bone Today E55.9 - Vitamin D deficiency, unspecified, M81.0 - Age-related osteoporosis without current pathological fracture Collagen Type I C-Telopeptide Today E55.9 - Vitamin D deficiency, unspecified, M81.0 - Age-related osteoporosis without current pathological fracture Protein Electrophoresis, Serum Today E55.9 - Vitamin D deficiency, unspecified, M81.0 - Age-related osteoporosis without current pathological fracture Parathyroid Hormone Intact Today E55.9 - Vitamin D deficiency, unspecified, M81.0 - Age-related osteoporosis without current pathological fracture Magnesium Today E55.9 - Vitamin D deficiency, unspecified, M81.0 - Age-related osteoporosis without current pathological fracture Creatinine Urine Today E55.9 - Vitamin D deficiency, unspecified, M81.0 - Age-related osteoporosis without current pathological fracture Immunofixation Pnl, Serum Today E55.9 - Vitamin D deficiency, unspecified, M81.0 - Age-related osteoporosis without current pathological fracture NM thyroid w uptake Today E04.2 - Nontoxic multinodular goiter, E05.90 - Thyrotoxicosis, unspecified without thyrotoxic crisis or storm Thyroid Stimulating Hormone Today E04.2 - Nontoxic multinodular goiter, E05.90 - Thyrotoxicosis, unspecified without thyrotoxic crisis or storm Free T4 (Free Thyroxine) Today E04.2 - Nontoxic multinodular goiter, E05.90 - Thyrotoxicosis, unspecified without thyrotoxic crisis or storm Vitamin D 25-OH Total Today E55.9 - Vitamin D deficiency, unspecified, M81.0 - Age-related osteoporosis without current pathological fracture Phosphorus Today E55.9 - Vitamin D deficiency, unspecified, M81.0 - Age-related osteoporosis without current pathological fracture Creatinine Today E55.9 - Vitamin D deficiency, unspecified, M81.0 - Age-related osteoporosis without current pathological fracture Calcium, Random Urine Today E55.9 - Vitamin D deficiency, unspecified, M81.0 - Age-related osteoporosis without current pathological fracture Patient Instructions: For your thyroid Do blood work Do nuclear medicine scan, someone will call you to schedule this For your bones Do fasting 8 AM blood work Do urine test Start if not already taking 1000 to 2000 units of vitamin D Start incorporating 2-3 servings of calcium rich foods daily such as milk, yogurt, cheese, broccoli, spinach, kale and if you cant take this many calcium rich foods start taking 600 mg of calcium in supplement daily Bring all medication bottles to next visit Coding Level of Care Code New Pt Level 5 (33593) Diagnoses Multinodular goiter (nontoxic) E04.2 Subclinical hyperthyroidism E05.90 Age-related osteoporosis without current pathological fracture M81.0 Osteoporosis type: age-related Presence of current pathological fracture: without current pathological fracture Time Spent (min) 60
== END 2025-07-19 13:34 | disposition home or self-care (01) ==
PROVIDERS: PCP Internal Medicine; Visit Provider Student in an Organized Health Care Education/Training Program
DX: E04.2 Nontoxic multinodular goiter (principal); E05.90 Thyrotoxicosis, unspecified without thyrotoxic crisis or storm; M81.0 Age-related osteoporosis without current pathological fracture
CPT/HCPCS: 99205

== ENCOUNTER → 2025-07-19 12:03 | Outpatient (BNVA) | payer MEDICARE, SELFPAY | PROVIDERS: PCP Internal Medicine; Visit Provider Student in an Organized Health Care Education/Training Program | DX: E04.2 Nontoxic multinodular goiter (principal); E05.90 Thyrotoxicosis, unspecified without thyrotoxic crisis or storm; M81.0 Age-related osteoporosis without current pathological fracture | CPT/HCPCS: 99202 ==

== ENCOUNTER 2025-07-21 10:08 | Outpatient (REF) | payer MEDICARE, SELFPAY ==
[2025-07-21 14:02] LABS: Albumin Level 4.5 g/dL (3.5-5.0); Calcium 10.1 mg/dL (8.4-10.2); Estimated Glomerular Filt Rate > 60; Magnesium 2.0 mg/dL (1.6-2.6)
[2025-07-21 14:26] LABS: Free T4 (Free Thyroxine) 1.16 ng/dL (0.71-1.85); Thyroid Stimulating Hormone 0.02 uIU/mL (0.32-4.0)
[2025-07-21 15:50] LABS: Parathyroid Hormone Intact 76.1 pg/mL (8.7-77.1)
[2025-07-24 18:19] LABS: Prot Elec - Albumin 4.2 g/dL (3.8-4.8); Prot Elec - Alpha1 0.3 g/dL (0.2-0.3); Prot Elec - Alpha2 0.9 g/dL (0.5-0.9); Prot Elec - Beta 1 0.5 g/dL (0.4-0.6); Prot Elec - Beta 2 0.6 g/dL (0.2-0.5); Prot Elec - Gamma 1.6 g/dL (0.8-1.7); Prot Elec - Total Protein 8.0 g/dL (6.1-8.1)
== END 2025-07-21 10:09 | disposition home or self-care (01) ==
LOC: HO.LAB 10:08
PROVIDERS: PCP Internal Medicine; Visit Provider Student in an Organized Health Care Education/Training Program
DX: E05.90 Thyrotoxicosis, unspecified without thyrotoxic crisis or storm (principal); E04.2 Nontoxic multinodular goiter; M81.0 Age-related osteoporosis without current pathological fracture; E55.9 Vitamin D deficiency, unspecified
CPT/HCPCS: 36415; 82040; 82306; 82310; 82565; 82784; 83520; 83735; 83970; 84075; 84100; 84165; 84439; 84443; 84445; 84480; 86334; 86376

== ENCOUNTER 2025-07-22 08:28 | Outpatient (REF) | payer MEDICARE, SELFPAY ==
[2025-07-24 16:47] LABS: Calcium, Random Urine 3.8 mg/dL
[2025-07-27 23:23] LABS: Collagen Type I C-Telopeptide 438 pg/mL (see note)
== END 2025-07-22 08:29 | disposition home or self-care (01) ==
LOC: HO.LAB 08:28
PROVIDERS: PCP Internal Medicine; Visit Provider Student in an Organized Health Care Education/Training Program
DX: M81.0 Age-related osteoporosis without current pathological fracture (principal); E55.9 Vitamin D deficiency, unspecified
CPT/HCPCS: 36415; 82310; 82523; 82570